=== PATIENT | male | born 1970 | race Caucasian/White ===

== ENCOUNTER → 2016-11-20 | Outpatient (CLI) | payer BC ==
[~2016-11-20] MED LIST: MUCINEX SINUS-1 EAC1 PO; NATURAL VITA100 UNIT PO; NO MEDICATIONS; OMEPRAZOLE40 M1 PO; XANAX0.5 MG PO
[2016-11-20 16:08] LABS: BASOPHIL# 0.1 X10e3 (0-0.3); BASOPHIL% 0.8 % (0-2.5); EOSINOPHIL# 0.3 X10e3 (0-0.7); EOSINOPHIL% 3.3 % (0.0-7.0); HEMATOCRIT 48.8 % (38.0-50.0); HEMOGLOBIN 16.4 gm/dL (13.0-16.0); LYMPHOCYTE# 2.8 X10e3 (1.0-3.5); LYMPHOCYTE% 35.6 % (17.0-45.0); MEAN CELL VOLUME 91.3 FL (83-96); MEAN CORPUSCULAR HEMOGLOBIN 30.7 PG (28-34); MEAN CORPUSCULAR HGB CONC 33.6 g/dL (30-36); MEAN PLATELET VOLUME 8.2 FL (6.5-11.5); MONOCYTE# 0.7 X10e3 (0-1.0); NEUTROPHIL% 51.3 % (40-75); PLATELET COUNT 204 X10e3 (140-420); RED BLOOD COUNT 5.35 X10e (3.90-5.60); RED CELL DISTRIBUTION WIDTH 13.3 % (11.0-15.5); WHITE BLOOD COUNT 7.7 X10e3 (4.0-10.5)
[2016-11-20 16:18] LABS: DIFF IND NO
[2016-11-20 16:32] LABS: ALBUMIN SERUM 4.5 g/dL (3.5-5.0); BILIRUBIN,TOTAL 0.8 mg/dL (0.2-2.0); BUN/CREATININE RATIO 16.36; CALCIUM SERUM 9.6 mg/dL (8.4-10.2); CREATININE SERUM 1.1 mg/dL (0.6-1.4); GLOM FILT RATE Estimated 79.5 mL/min (>60); POTASSIUM 4.3 mmol/L (3.5-5.1); PROTEIN TOTAL SERUM 7.6 g/dL (6.0-8.3)
== END | disposition home or self-care (01) ==
LOC: CLAB 15:49
PROVIDERS: Internal Medicine Gastroenterology
DX: K75.81 Nonalcoholic steatohepatitis (NASH) (principal)
CPT/HCPCS: 36415; 80053; 85025